=== PATIENT | male | born 1995 | race Caucasian/White ===

== ENCOUNTER 2020-04-08 14:59 | Emergency (ER) | payer OTHER ==
[~2020-04-08] VITALS: Ht 165.1 cm; Wt 70.3 kg
[2020-04-08 15:19] LABS: ABSOLUTE BASOPHILS 0.1 thou/uL (0.0-0.2); ABSOLUTE EOSINOPHILS 0.1 thou/uL (0.0-0.7); ABSOLUTE MONOCYTES 0.6 thou/uL (0.0-1.2); ABSOLUTE NEUTROPHILS 5.9 thou/uL (1.6-8.1); BASOPHILS 0.9 %; EOSINOPHILS 1.2 %; HEMATOCRIT 42.7 % (42.0-52.0); HEMOGLOBIN 15.3 gm/dL (14.0-18.0); LYMPHOCYTES 22.8 %; MCHC 35.9 g/dL (28.0-37.0); MONOCYTES 6.7 %; MPV 7.4 fl. (7.2-11.1); NUCLEATED RBCS 0 /100WBC; PLATELET COUNT* 275 thou/uL (150-400); POLYS 68.4 %; RDW-CV 13.1 % (10.5-14.5); WBC 8.7 thou/uL (4.0-11.0)
[2020-04-08 15:25] LABS: APTT 24.5 Seconds (25.0-31.3); CALCIUM 9.3 mg/dL (8.5-10.1); CREATININE 1.2 mg/dL (0.6-1.3); INR 1.1; POTASSIUM 3.2 mmol/L (3.5-5.1); PROTIME 11.2 Seconds (9.20-11.50)
[2020-04-08 15:30] LABS: ALBUMIN 4.4 g/dL (3.4-5.0); TOTAL BILIRUBIN 1.2 mg/dL (<0.1-1.0); TOTAL PROTEIN 7.6 g/dL (6.4-8.2)
[2020-04-08] MEDS ORDERED: PERCOCET 5-3251 EACH PO (16:17)
[2020-04-08 16:21] VITALS: BP 125/70
--- NOTE | 2020-04-09 13:27 | EKG ---
[place] [address] ELECTROCARDIOGRAM REPORT Name: SYLVIA KAPLAN Room: [facility].#: [id number] Admission: 04/08/20 Attend Phys: Discharge: 04/08/20 Date of : [birth year] Date of Service: 04/08/20 1501 Report #: [id number] THIS REPORT FOR: //name// [facility] ED Test Date: 2020-04-08 Test Time: 15:01:58 Pat Name: SYLVIA KAPLAN Department: Room: Gender: Information Systems Auditor: SANCHEZ : 1995 Requested By: Stephen Call Order Number: [id number] MD: Dejon Villagomez Measurements Intervals [place] Rate: 105 P: 70 TX: 131 QRS: 50 QRSD: 87 T: 49 QT: 321 QTc: 425 Interpretive Statements Sinus tachycardia No previous ECG available for comparison Electronically Signed On 04-09-2020 13:26:33 CDT by Dejon Villagomez [email or web address] <ELECTRONICALLY SIGNED> By: Dejon Villagomez MD, [facility] 04/09/20 1326 1501 1501 Dejon Villagomez MD, FACC /EPI
== END 2020-04-08 16:30 | disposition home or self-care (01) ==
LOC: M.ERS 14:59
PROVIDERS: Family Medicine
DX: S20.211A Contusion of right front wall of thorax, initial encounter (principal); S40.212A Abrasion of left shoulder, initial encounter; S40.211A Abrasion of right shoulder, initial encounter; Z88.8 Allergy status to other drugs, medicaments and biological substances; V49.49XA Driver injured in collision with other motor vehicles in traffic accident, initial encounter; Y93.89 Activity, other specified; Y92.89 Other specified places as the place of occurrence of the external cause; Y99.8 Other external cause status